=== PATIENT | male | born 1980 | race Two or more races ===

== ENCOUNTER 2017-03-10 13:39 | Emergency (ER) | payer SELFPAY ==
[~2017-03-10] VITALS: Ht 175.3 cm; Wt 74.8 kg
--- NOTE | 2017-03-10 13:52 | NUR ---
CHEST CONGESTION, COUGH x 2 DAYS. VSS
[2017-03-10 15:09] VITALS: BP 132/80
--- NOTE | 2017-03-10 15:09 | NUR ---
Patient discharged to home in stable condition. Written and verbal after care instructions given. Patient verbalizes understanding of instruction.
== END 2017-03-10 15:10 | disposition home or self-care (01) ==
LOC: ER 13:42
DX: J06.9 Acute upper respiratory infection, unspecified (principal)
CPT/HCPCS: 71045; 99283; A4606; Z7610

== ENCOUNTER 2017-03-15 18:50 | Emergency (ER) | payer SELFPAY ==
[~2017-03-15] VITALS: Ht 175.3 cm; Wt 74.8 kg
[2017-03-15 18:57] VITALS: BP 153/96
== END 2017-03-15 21:35 | disposition home or self-care (01) ==
LOC: ER 18:53
DX: J06.9 Acute upper respiratory infection, unspecified (principal)
CPT/HCPCS: 36415; 85378-TC; A4606; Z7610